=== PATIENT | female | born 1980 | race Caucasian/White ===

== ENCOUNTER 2016-11-18 08:57 | Day surgery (SDC) | payer OTHER ==
[2016-11-18] VITALS (20 sets, daily range): BP systolic 80–144; BP diastolic 52–87; PULSE 46–87; TEMP 98.4
[~2016-11-18] VITALS: Ht 162.6 cm; Wt 105.0 kg
[2016-11-18] MEDS ORDERED: TOPROL XL 25MG25 MG PO (09:21)
[2016-11-18] MEDS ORDERED: ZYRTEC 10MG10 MG PO (09:21)
[2016-11-18] MEDS ORDERED: FLONASE NASAL S16 GM NS (09:22)
[2016-11-18] MEDS ORDERED: ASPIRIN E.C. 8181 MG PO (09:22)
[2016-11-18 10:01] LABS: HEMATOCRIT 38.7 % (37.0-47.0); HEMOGLOBIN 12.9 g/dl (12.5-16.0); MEAN CELL VOLUME 89 fl (80.0-100.0); MEAN CORPUSCULAR HEMOGLOBIN 30 pg (27.0-31.0); MEAN CORPUSCULAR HGB CONC 33 g/dl (33.0-37.0); MEAN PLATELET VOLUME 11.5 fl (7.4-10.4); PLATELET COUNT 252 K/mm3 (130-400); RED BLOOD COUNT 4.34 M/mm3 (4.10-5.30); REDCELL DISTRIBUTION WIDTH-CV 13.2 % (11.5-14.5); WHITE BLOOD COUNT 5.8 K/mm3 (4.8-10.8)
[2016-11-18 10:10] LABS: CALCIUM 9.3 mg/dL (8.4-10.2); CREATININE, serum 0.85 mg/dL (0.52-1.25); POTASSIUM 4.3 mmol/L (3.4-5.0)
[2016-11-18 10:24] LABS: INR 1.1 (0.8-3.0); PROTHROMBIN TIME 12.1 SECONDS (9.7-12.8)
[2016-11-18] MEDS ORDERED: VASOTEC 2.2.5 MG/TAB PO (14:50)
[2016-11-18] MEDS ORDERED: LASIX 20MG TABL20 MG PO (14:51)
== END 2016-11-18 18:30 | disposition home or self-care (01) ==
LOC: COL.RAD 08:57
PROVIDERS: Internal Medicine Cardiovascular Disease
DX: I42.0 Dilated cardiomyopathy (principal); I44.7 Left bundle-branch block, unspecified; R94.39 Abnormal result of other cardiovascular function study; R06.02 Shortness of breath; R03.0 Elevated blood-pressure reading, without diagnosis of hypertension; Z82.49 Family history of ischemic heart disease and other diseases of the circulatory system; Z79.82 Long term (current) use of aspirin; Z79.899 Other long term (current) drug therapy
CPT/HCPCS: C1760; J2250; J3010; Q9967